=== PATIENT | male | born 1990 | race Asian ===

== ENCOUNTER 2017-11-28 17:15 | Emergency (ER) | payer OTHER ==
[2017-11-28 17:22] VITALS: RESP 18
--- NOTE | 2017-11-28 17:57 | EDPHY ---
H & P Time Seen by Provider: 11/28/17 17:43 HPI/ROS: CHIEF COMPLAINT: Left knee injury HISTORY OF PRESENT ILLNESS: 27-year-old male presents to the emergency department with injury to his left knee. The patient was skiing this afternoon and twisted and then fell onto his left knee. He complains of pain to the lateral aspect of his left knee. He feels that it is very unstable and is unable to bear weight. He denies hitting his head or losing consciousness. Denies any other injury or trauma. ROS: Denies pain in his left ankle, left hip or symptoms in the right lower extremity. Past Medical/Surgical History: Negative Social History: Lives in [place] Smoking Status: Never smoked Physical Exam: On examination the patient has no obvious effusion. Pain with palpation to the lateral aspect of his left knee specially to the proximal fibula. No palpable crepitus or other bony abnormality. Mild pain with palpation in the lateral joint line. He has full extension of the left knee. He has limited flexion secondary to pain. Difficult to assess ligament stability given his pain. He does have pain with anterior drawer testing ACL. Full range of motion of the left ankle. No abrasions. No wheezes effusion. Gait is not tested due to pain. Constitutional: Initial Vital Signs Temperature (C) 36.7 C 11/28/17 17:20 Heart Rate 78 11/28/17 17:20 Respiratory Rate 18 11/28/17 17:20 Blood Pressure 108/67 11/28/17 17:20 O2 Sat (%) 96 11/28/17 17:20 O2 Delivery Mode Room Air Allergies/Adverse Reactions: No Known Allergies Allergy (Unverified 11/28/17 17:19) Home Medications: Medication Instructions Recorded NK [No Known Home Meds] 11/28/17 MDM/Departure - MDM Imaging Results: Imaging Impressions Knee X-Ray 11/28/17 17:55 Impression: No evidence for acute fracture. Mild suprapatellar joint effusion. Imaging: I viewed and interpreted images myself Procedures: Patient was placed in knee immobilizer and examined post application in good placement with normal [employer]. ED Course/Re-evaluation: 27-year-old male presents to the emergency department with right knee injury. X- rays reveal no fractures. Patient was placed in a straight leg knee immobilizer and given orthopedic referral. - Depart Disposition: Home, Routine, Self-Care Clinical Impression: Left knee sprain Qualifiers: Encounter type: initial encounter Involved ligament of knee: unspecified ligament Qualified Code(s): S83.92XA - Sprain of unspecified site of left knee, initial encounter Condition: Good Instructions: Knee Sprain (ED) Additional Instructions: Knee immobilizer for comfort and support. Ibuprofen 600mg every 8 hours for pain as directed. Weight bear as tolerated, crutches. Referrals: Jackie Macedo MD [Medical Doctor] - As per Instructions
[2017-11-28 18:13] VITALS: TEMP 98.2
[2017-11-28 18:59] VITALS: BP 109/64; PULSE 84; O2SAT 96
== END 2017-11-28 19:04 | disposition home or self-care (01) ==
DX: S83.92XA Sprain of unspecified site of left knee, initial encounter (principal); V00.321A Fall from snow-skis, initial encounter; Y99.8 Other external cause status; Y93.23 Activity, snow (alpine) (downhill) skiing, snowboarding, sledding, tobogganing and snow tubing
CPT/HCPCS: L1830